=== PATIENT | female | born 1995 | race Caucasian/White ===

== ENCOUNTER 2021-06-27 05:15 | Inpatient (IN) ==
[2021-06-27] MEDS ORDERED: CITRIC ACID/SODIUM CITRATE 30 ML UDCUP PO ONE (05:27)
[2021-06-27] MEDS ORDERED: FAMOTIDINE 20 MG/2 ML VIAL IV ONE (05:27)
[2021-06-27] MEDS ORDERED: ceFAZolin 2,000 MG/50 ML DUPLEX IV ONE (05:27)
[2021-06-27] MEDS: LACTATED RINGERS 1,000 ML IV SCH ×2 (06:01→15:53)
[2021-06-27 06:13] LABS: Basophils # 0.1 10*3/uL (0.0-0.2); Basophils % 0.4 % (0.0-0.8); Eosinophils # 0.1 10*3/uL (0.0-0.87); Hemoglobin 10.1 GM/DL (12.0-16.0); Immature Granulocytes % 1.7 %; Immature Granulocytes Absolute 0.24 #; Lymphocytes # 2.9 10*3/uL (1.4-4.0); Lymphocytes % 20.6 % (21.3-54.2); Mean Corpuscular HGB Conc 30.6 GM/DL (32-36); Mean Corpuscular Volume 82.7 FL (87-102); Mean Platelet Volume 11.9 FL (9.6-12.0); Monocytes % 7.7 % (1.7-12.7); Neutrophils % 68.6 % (38.7-73.9); Platelet Count 278 T/CUMM (130-400); Red Blood Count 3.99 MC/CUMM (3.8-5.5); Red Cell Distribution Width 14.9 % (9.3-17.3); White Blood Count 14.2 T/CUMM (4-12)
[2021-06-27] MEDS ORDERED: TRANEXAMIC ACID 1,000 MG/10 ML VIAL ONE (07:17)
[2021-06-27] MEDS ORDERED: miSOPROStoL 200 MCG TABLET ONE (07:17)
[2021-06-27] MEDS ORDERED: OXYTOCIN/LR 20 UNIT/1,000 ML BAG IV ONE ×3 (07:17→08:52)
[2021-06-27] MEDS ORDERED: METHYLERGONOVINE 0.2 MG/1 ML AMP ONE (07:17)
[2021-06-27] MEDS ORDERED: SODIUM CHLORIDE 0.9% 0 ML IV ONE (07:17)
[2021-06-27] MEDS ORDERED: CARBOPROST TROMETHAMINE 250 MCG/ML AMP IM ONE (07:17)
[2021-06-27] MEDS ORDERED: ONDANSETRON 4 MG/2 ML VIAL ONE (07:35)
[2021-06-27] MEDS ORDERED: BUPIVACAINE SPINAL 0.75% 2 ML AMP SPINAL ONE (07:36)
[2021-06-27] MEDS ORDERED: SODIUM CHLORIDE 0.9% 1,000 ML IV ONE (07:53)
[2021-06-27] MEDS ORDERED: GLYCOPYRROLATE 0.4 MG/2 ML VIAL ONE (07:57)
[2021-06-27] MEDS ORDERED: KETOROLAC 30 MG/1 ML VIAL ONE (08:18)
[2021-06-27 08:22] LABS: Cord Arterial Blood HCO3 22.4 MMOL/L
[2021-06-27 08:26] LABS: Cord Venous Blood HCO3 23.2 MMOL/L; Cord Venous Blood PCO2 50.5 MMHG; Cord Venous Blood PO2 25.3
[2021-06-27 08:29] LABS: Bilirubin,Urine Negative (Negative); Blood, Urine Negative (Negative); Glucose,Urine (UA) Negative (Negative); Ketones,Urine Negative (Negative); Mucus,Urine Occasional /LPF (Occasional); Nitrite,Urine Negative (Negative); Protein,Urine Negative; RBC,Urine 2 /HPF (0-4); Squamous Epithelial Cell,Urine Occasional /HPF (0-10); Urine Appearance CLEAR (Clear); Urine Color Straw (Yellow); Urine Urobilinogen < 2.0 EU/DL (<2.0)
[2021-06-27] MEDS ORDERED: SODIUM CHLORIDE 0.9% 2,000 ML IV ONE (08:49)
[2021-06-27] MEDS ORDERED: PHENYLEPHRINE 1 MG/10 ML SYRINGE IV ONE (08:49)
[2021-06-27] MEDS ORDERED: ONDANSETRON 4 MG/2 ML VIAL IV PRN (08:52)
[2021-06-27] MEDS ORDERED: ACETAMINOPHEN 325 MG TABLET PO PRN (08:52)
[2021-06-27] MEDS ORDERED: RHO(D) IMMUNE GLOBULIN 300 MCG SYRINGE IM ONE (08:52)
[2021-06-27] MEDS ORDERED: LACTATED RINGERS 1,000 ML IV SCH (09:00)
[2021-06-27] MEDS: MULTIVITAMIN (PRENATAL) TABLET PO SCH (10:31)
[2021-06-27] MEDS: DOCUSATE SODIUM 100 MG CAPSULE PO SCH ×2 (10:31→21:31)
[2021-06-27] MEDS ORDERED: diphenhydrAMINE 50 MG/1 ML VIAL IV PRN (13:27)
[2021-06-27] MEDS: ACETAMINOPHEN 500 MG TABLET PO SCH ×2 (15:12→21:31)
[2021-06-27] MEDS: KETOROLAC 30 MG/1 ML VIAL IV SCH ×2 (15:13→21:35)
[2021-06-27 16:38] LABS: Basophils # 0.1 10*3/uL (0.0-0.2); Basophils % 0.3 % (0.0-0.8); Eosinophils # 0.1 10*3/uL (0.0-0.87); Eosinophils % 0.4 % (0.00-10.9); Hematocrit 30.8 VOL% (35.7-47.0); Hemoglobin 9.2 GM/DL (12.0-16.0); Immature Granulocytes % 0.8 %; Immature Granulocytes Absolute 0.15 #; Lymphocytes # 2.5 10*3/uL (1.4-4.0); Lymphocytes % 13.9 % (21.3-54.2); Mean Corpuscular HGB Conc 29.9 GM/DL (32-36); Mean Corpuscular Volume 83.7 FL (87-102); Mean Platelet Volume 11.7 FL (9.6-12.0); Monocytes % 6.4 % (1.7-12.7); Neutrophils % 78.2 % (38.7-73.9); Platelet Count 234 T/CUMM (130-400); Red Blood Count 3.68 MC/CUMM (3.8-5.5); Red Cell Distribution Width 14.9 % (9.3-17.3); White Blood Count 17.7 T/CUMM (4-12)
[2021-06-27] MEDS ORDERED: oxyCODONE/ACETAMINOPHEN 5-325 MG TABLET PO PRN (17:20)
[2021-06-27] MEDS: FERROUS SULFATE 325 MG TABLET PO SCH (21:31)
[2021-06-28] MEDS: ACETAMINOPHEN 500 MG TABLET PO SCH (03:43)
[2021-06-28] MEDS: KETOROLAC 30 MG/1 ML VIAL IV SCH (03:43)
[2021-06-28 05:52] LABS: Basophils # 0.1 10*3/uL (0.0-0.2); Basophils % 0.5 % (0.0-0.8); Eosinophils # 0.1 10*3/uL (0.0-0.87); Eosinophils % 0.8 % (0.00-10.9); Hematocrit 32.5 VOL% (35.7-47.0); Hemoglobin 9.8 GM/DL (12.0-16.0); Immature Granulocytes Absolute 0.16 #; Lymphocytes # 2.6 10*3/uL (1.4-4.0); Mean Corpuscular HGB Conc 30.2 GM/DL (32-36); Mean Corpuscular Volume 84.6 FL (87-102); Mean Platelet Volume 11.7 FL (9.6-12.0); Monocytes % 8.3 % (1.7-12.7); Neutrophils % 72.4 % (38.7-73.9); Platelet Count 246 T/CUMM (130-400); Red Blood Count 3.84 MC/CUMM (3.8-5.5); Red Cell Distribution Width 15.1 % (9.3-17.3); White Blood Count 15.6 T/CUMM (4-12)
[2021-06-28] MEDS: SIMETHICONE CHEW 80 MG TABLET PO PRN ×2 (08:56→17:43)
[2021-06-28] MEDS: DOCUSATE SODIUM 100 MG CAPSULE PO SCH ×2 (08:57→20:56)
[2021-06-28] MEDS: MAGNESIUM HYDROXIDE SUSP 30 ML UDCUP PO PRN (08:57)
[2021-06-28] MEDS: FERROUS SULFATE 325 MG TABLET PO SCH ×2 (08:57→20:56)
[2021-06-28] MEDS: MULTIVITAMIN (PRENATAL) TABLET PO SCH (08:57)
[2021-06-28] MEDS: oxyCODONE/ACETAMINOPHEN 5-325 MG TABLET PO PRN (13:38)
[2021-06-28] MEDS ORDERED: RHO(D) IMMUNE GLOBULIN 300 MCG SYRINGE IM ONE (14:00)
[2021-06-28] MEDS: IBUPROFEN 800 MG TABLET PO PRN (17:36)
[2021-06-29] MEDS: IBUPROFEN 800 MG TABLET PO PRN (04:08)
[2021-06-29 09:08] VITALS: BP 93/48
[2021-06-29] MEDS: MAGNESIUM HYDROXIDE SUSP 30 ML UDCUP PO PRN (09:32)
[2021-06-29] MEDS: MULTIVITAMIN (PRENATAL) TABLET PO SCH (09:32)
[2021-06-29] MEDS: FERROUS SULFATE 325 MG TABLET PO SCH (09:33)
[2021-06-29] MEDS: DOCUSATE SODIUM 100 MG CAPSULE PO SCH (09:33)
[2021-06-29] MEDS: oxyCODONE/ACETAMINOPHEN 5-325 MG TABLET PO PRN (11:55)
== END 2021-06-29 13:25 | disposition home or self-care (01) | DRG 539 ==
LOC: N.LD 05:15 → N.OB 14:14
PROVIDERS: ADMIT Obstetrics & Gynecology; ATTEND Obstetrics & Gynecology